=== PATIENT | female | born 1970 | race Asian ===

== ENCOUNTER 2019-03-04 08:49 | Outpatient (CLI) | payer OTHER ==
--- NOTE | 2019-03-04 09:24 | MMO ---
Left Breast MAMMO [facility] LT+LEYLA. CLINICAL HISTORY: Patient is 48 years old and is seen for diagnostic exam. The patient has no family history of breast cancer. The patient has no personal history of cancer. VIEWS: The views performed were: left craniocaudal spot compression with tomosynthesis; left mediolateral oblique spot compression with tomosynthesis; and left mediolateral with tomosynthesis. FILMS COMPARED: The present examination has been compared to a prior imaging study performed at [facility] on 02/22/2019. MAMMOGRAM FINDINGS: There are scattered fibroglandular densities. Finding 1: Followup was performed for focal asymmetry of the upper outer left breast seen on the patient's baseline mammogram performed at [facility]. The asymmetry did not persist with additional views. Finding 2: There are calcifications seen in the left breast. There are no suspicious masses, suspicious calcifications, or new areas of architectural distortion. IMPRESSION: FINDING 1: FINDING IN THE LEFT BREAST IS BENIGN. THE FINDINGS AND RECOMMENDATIONS WERE DISCUSSED WITH THE PATIENT PRIOR TO HER LEAVING THE BREMOND. FINDING 2: CALCIFICATIONS IN THE LEFT BREAST ARE BENIGN. A ROUTINE FOLLOW-UP MAMMOGRAM IN 1 YEAR IS RECOMMENDED. THE RESULTS OF THIS EXAM WERE SENT TO THE PATIENT. ACR BI-RADS Category 2 - Benign finding MAMMOGRAPHY NOTE: 1. A negative mammogram report should not delay a biopsy if a dominant of clinically suspicious mass is present. 2. Approximately 10% to 15% of breast cancers are not detected by mammography. 3. Adenosis and dense breasts may obscure an underlying neoplasm. Reported by: SHEELA DYKES MD Electonically Signed: [id number]
== END 2019-03-04 08:50 | disposition home or self-care (01) ==
LOC: BICMAMMO 08:49
PROVIDERS: ATTEND Student in an Organized Health Care Education/Training Program
DX: R92.2 Inconclusive mammogram (principal); R92.1 Mammographic calcification found on diagnostic imaging of breast
CPT/HCPCS: G0279